=== PATIENT | female | born 1995 | race African-American/Black ===

== ENCOUNTER → 2024-10-09 11:52 | Outpatient (CLI) | payer OTHER, SELFPAY ==
--- NOTE | 2024-10-09 11:54 | DI.US.S_ITS ---
PROCEDURE: US OB <= 14 WEEKS FETUS INDICATIONS: Bleeding early OUTSIDE/PRIOR DATING DATA: Last menstrual period (LMP): 08/28/2024 LMP-based estimated date of delivery (XANDER): 06/04/2025 TECHNIQUE: Real-time scanning was performed of the fetus and maternal pelvic organs, with image documentation. COMPARISON: None. FINDINGS: Embryo: Single intrauterine sac-like structure is seen measures 6 mm in diameter. Estimated gestational age is 5 weeks, 2 days. Estimated gestational age based on last menstrual period is 6 weeks 0 day. No pole is identified. No yolk sac is seen. Heart rate: Not detected. Maternal organs: Ovaries are visualized and are within normal limits. Corpus luteum is noted in right ovary measures 1.8 x 1.2 x 1.3 cm in size. IMPRESSION: 1. Finding may represent early intrauterine gestation. Follow-up with serial beta hCG levels and follow-up ultrasound is recommended for evaluation of viability. 2. Corpus luteum in right ovary as above. We strive to produce accurate, complete, and clear reports of imaging services. To assist us in improving patient care, this report was composed using standard report templates and voice recognition software. Therefore, it may contain abnormal punctuation, insertions and/or omissions. Occasional wrong-word or sound-alike substitutions may occur. Though we review the report and make efforts to correct it, we do recommend that the report be read carefully in proper context to recognize any text inaccuracies. Dictated by: Samm Leonard M.D. on 10/09/2024 at 12:50 Approved by: Samm Leonard M.D. on 10/09/2024 at 12:52
== END ==
PROVIDERS: Referring Provider Obstetrics & Gynecology; Visit Provider Obstetrics & Gynecology
DX: O20.9 Hemorrhage in early pregnancy, unspecified (principal); D25.9 Leiomyoma of uterus, unspecified
CPT/HCPCS: 76801; 76817

== ENCOUNTER 2024-11-04 20:19 | Emergency (ER) | payer OTHER, SELFPAY ==
[2024-11-04 20:24] VITALS: BP 135/82; PULSE 79; RESP 17; TEMP 36.3; O2SAT 100; BMI 30.2
--- NOTE | 2024-11-04 22:05 | DI.US.S_ITS ---
PROCEDURE: US PELVIC COMPLETE INDICATIONS: SEVERE PAIN; POSITIVE HCG TECHNIQUE: Real-time scanning was performed of the pelvic organs, with image documentation. Additional endovaginal scanning was necessary due to incomplete visualization of the adnexal and endometrial structures by transabdominal scanning. COMPARISON: [facility], US, US OB <= 14 WEEKS FETUS, 10/09/2024, 12:04. FINDINGS: Uterus: Uterus is anteverted and normal in size at 8.6 x 4.3 x 4.8 cm. The myometrium is homogeneous. The endometrium measures 9.2 mm combined thickness. No visualized intrauterine . Right posterior intramural focus of heterogeneous echogenicity is present measuring 1.5 cm. Ovaries: The right ovary measures 2.6 x 3.6 x 2.6 cm, with a calculated ovarian volume of 12.7 cc. The left ovary measures 1.3 x 2.5 x 1.5 cm, with a calculated ovarian volume of 2.4 cc. There is is a complex focus within the right ovary measuring 1.3 x 1.7 x 1 0 cm. No increased vascularity. Other: Mild echogenic fluid is present in the cul-de-sac. IMPRESSION: No visualized intrauterine . Complex cystic structure within the right ovary. No increased vascularity. This is overall nonspecific. Could represent a corpus luteal cyst. Given presence positive beta HCG ectopic cannot be definitively excluded. Echogenic fluid within the pelvis. This is nonspecific. However, cannot exclude hemorrhagic products. We strive to produce accurate, complete, and clear reports of imaging services. To assist us in improving patient care, this report was composed using standard report templates and voice recognition software. Therefore, it may contain abnormal punctuation, insertions and/or omissions. Occasional wrong-word or sound-alike substitutions may occur. Though we review the report and make efforts to correct it, we do recommend that the report be read carefully in proper context to recognize any text inaccuracies. Dictated by: Alia Live M.D. on 11/04/2024 at 23:15 Approved by: Alia Live M.D. on 11/04/2024 at 23:17
--- NOTE | 2024-11-04 23:16 | ED.PREGNANCY ---
HPI - General Chief complaint: Vaginal Bleeding Stated complaint: vaginal bleeding, abd px Time Seen by Provider: 11/04/24 22:05 Source: patient, RN notes reviewed and old records reviewed Mode of arrival: Ambulatory History of Present Illness HPI Narrative: Female presents with complaint of vaginal bleeding was seen yesterday [facility] for abdominal pain at approximately 9.5 weeks by dates had ultrasound and was told she would miscarried as nothing was visualized her hCG was 2700 range with a cyst on the right ovary started having vaginal bleeding today and then started having clots and continued abdominal pain. Patient states that she started having pain in the last 24-48 hours describes it as being more localized to the right. Denies any fever or chills has a little nausea no vomiting. Pain has been increasing since she was seen at [facility]. She did take the oxycodone that was prescribed but states it was not helpful. She was continued to have some small initially spotting and has had larger clots when she urinates. She was wearing a diaper but has not had to change it frequently. Flank pain. No urinary symptoms. Patient states no prior pregnancies. She states she did have blood test as well as an ultrasound at the [facility] that showed an intrauterine at approximately 5 weeks. She states she was on no daily medications. No known drug allergies. No prior surgeries other than a removal of a teratoma. Related Data Home Medications Medication Instructions Recorded Confirmed vitamin-ferrous sulfate tab PO 10/03/24 10/03/24 27 mg iron-folic acid 0.8 mg tablet Previous Rx's Medication Instructions Recorded hydrocodone 5 mg-acetaminophen 325 1 tab PO Q6H PRN pain #10 tabs 11/05/24 mg tablet Allergies Allergy/AdvReac Type Severity Reaction Status Date / Time No Known Drug Allergies Allergy Verified 11/04/24 20:24 Review of Systems Review of Systems ROS Unobtainable: All systems reviewed & are unremarkable except as noted in HPI and below Exam Narrative Exam Narrative: GENERAL: Alert and oriented x three, moderate distress HEENT: Head normocephalic, atraumatic, EOMI, pupils reactive, face symmetric, moist mucous membranes NECK: Supple, full range of motion CARDIOVASCULAR: Regular rate and rhythm without murmurs, rubs or gallops. RESPIRATORY: Breath sounds equal bilaterally, no wheezes rales or rhonchi. ABDOMEN: Soft, positive for pelvic tenderness right greater than left. Normoactive bowel sounds all 4 quadrants. No guarding or rebound, rigidity, no mass : No CVA tenderness. Female: external vaginal exam is normal, positive for vaginal bleeding, patient was 1 small clot, to Ignacio swabs were used to remove dark blood patient did not have active bleeding after that, no discharge, no cervical motion tenderness, otherwise normal speculum exam, no adnexal tenderness/mass. EXTREMITIES: Normal range of motion, no clubbing or edema. Neurovascularly intact NEUROLOGICAL: Cranial nerves II through XII grossly intact. Moving all extremities SKIN: Warm, dry, no petechiae, no rashes or lesions. Initial Vital Signs Initial Vital Signs: Vital Signs Temperature 97.3 F L 11/04/24 20:24 Pulse Rate 79 11/04/24 20:24 Respiratory Rate 17 11/04/24 20:24 Blood Pressure 135/82 11/04/24 20:24 Pulse Oximetry 100 11/04/24 20:24 Oxygen Delivery Method Room Air 11/04/24 20:24 Course Orders Ordered: ED Orders 11/04/24 22:05 US pelvic complete Stat 11/04/24 23:08 ABO RH Type Stat Beta HCG, Quant [HCG Quantitative /Beta subunit] Stat CBC Auto Diff [Complete Blood Count AUTO DIFF] Stat CMP [Comprehensive Metabolic Panel] Stat Discontinued Medications Hydrocodone Bitart/Acetaminophen (Hydrocodone/Acet 5/325 Prepack) 1 bottle MISC DIRECTED ONE Stop: 11/05/24 01:25 Last Admin: 11/05/24 01:31 Dose: 1 bottle Documented By: AB Hydromorphone HCl (Hydromorphone 1 Mg Inj) 1 mg IV NOW ONE Stop: 11/04/24 23:55 Last Admin: 11/04/24 23:58 Dose: 1 mg Documented By: [facility] Ketorolac Tromethamine (Ketorolac 30 Mg/Ml Vial) 15 mg IV NOW ONE Stop: 11/04/24 23:27 Last Admin: 11/04/24 23:31 Dose: 15 mg Documented By: [facility] Vital Signs Vital signs: Vital Signs - 8 hr 11/04/24 23:17 11/04/24 23:30 11/04/24 23:30 Pulse Rate 86 85 Blood Pressure 136/94 H Pulse Oximetry 99 100 Oxygen Delivery Method 11/05/24 00:00 11/05/24 00:00 11/05/24 00:30 Pulse Rate 84 Blood Pressure 133/84 111/64 Pulse Oximetry 99 Oxygen Delivery Method 11/05/24 00:30 11/05/24 01:10 11/05/24 01:11 Pulse Rate 82 119 H Blood Pressure 121/68 Pulse Oximetry 96 92 Oxygen Delivery Method 11/05/24 01:11 Pulse Rate 106 H Blood Pressure Pulse Oximetry 98 Oxygen Delivery Method Room Air MDM - OB/Uterine Contractions Lab Data 11/04/24 23:08 11/04/24 23:08 Labs: Lab Results 11/04/24 Range/Units 23:08 WBC 14.0 H (4.5-11.0) X10^3/uL RBC 4.39 (4.0-5.2) X10^6/uL Hgb 12.8 (12.0-16.0) g/dL Hct 38.2 (36-46) % MCV 87.2 (80-100) fL MCH 29.2 (26-34) PG MCHC 33.5 (30-36) % RDW 12.8 (11.6-14.8) % Plt Count 328 (150-400) X10^3/uL Neut % (Auto) 86.9 H (50-75) % Lymph % (Auto) 8.4 L (25-40) % Hickman % (Auto) 4.5 (3-14) % Eos % (Auto) 0.0 L (2-4) % Baso % (Auto) 0.2 (0-2) % Neut # (Auto) 19264 H (7984-1024) /uL Lymph # (Auto) 1200 (0705-2201) /uL Hickman # (Auto) 600 (0-900) /uL Eos # (Auto) 0 (0-450) /uL Baso # (Auto) 0 (0-100) /uL Sodium 135 L (137-145) mmol/L Potassium 4.0 (3.4-5.1) mmol/L Chloride 103 (98-107) mmol/L Carbon Dioxide 20 L (22-32) mmol/L BUN 7 (7-17) mg/dL Creatinine 0.78 (0.52-1.04) mg/dL Estimated GFR > 60 (>60) mL/min BUN/Creatinine Ratio 9.0 (6-22) Glucose 111 H (70-100) mg/dL Calcium 9.4 (8.4-10.2) mg/dL Total Bilirubin 0.8 (0.2-1.3) mg/dL AST 33 (14-36) IU/L ALT 30 (<35) IU/L Alkaline Phosphatase 73 (38-126) U/L Total Protein 8.4 H (6.3-8.2) g/dL Albumin 4.7 (3.5-5.0) g/dL Globulin 3.7 (1.7-4.1) g/dL Albumin/Globulin Ratio 1.3 (1.0-2.8) HCG, Quant 838.47 mIU/mL Blood Type O Positive ECG Data Interpretation: MDM Narrative Medical decision making narrative: Records were obtained from [facility] patient had ultrasound which showed no visualized intrauterine cystic mass in the right adnexa possibly representing involuting corpus luteum cyst given history of recent intrauterine . Patient's hCG was 2730 on 11/03/2024 at 6:48 p.m. Hemoglobin was 12.6 last menstrual period was 08/28/2024 Labs including CBC, CMP, hCG and were repeated. Labs show white count of 14 hemoglobin 12.8 and 12.6 yesterday. Platelets of 328. Sodium is 135 electrolytes are otherwise appropriate CO2 is 20 glucose is 111 quantitative hCG on repeat is trending down words from 2730 yesterday to 838.47 today Patient was O positive. Ultrasound today shows visualized intrauterine complex cystic structure right ovary no increased vascularity nonspecific could represent a corpus luteal cyst positive beta hCG ectopic can not be definitively excluded echogenic fluid within the pelvis nonspecific cannot exclude hemorrhagic products. Right posterior intramural focus of heterogeneous echogenicity present measuring 1.5 cm. Patient received Toradol. Was still quite uncomfortable had additional narcotic pain medication. On recheck she has discomfort but is feeling much improved afterwards. Discussed with Dr. Shaver he was on-call for Ob/gynecology: Reviewed findings from today ultrasound from today well as yesterday patient appears to be having miscarriage likely has some hemorrhagic products felt appropriate for discharge home she has been hemodynamically stable with follow up in the next week and return precautions. Patient's hemoglobin appears to be stable, hCG is trending down words suspect more corpus luteum cyst and not ectopic as patient notes she had intrauterine on ultrasound at [facility] [place] [facility] [place] [employer]. On exam there is some blood but she has not had to change her pad repeatedly here in the department. She states she was changed 4 times in 12+ hours. Reviewed with patient, she has an appointment on Wednesday with char conveyor tender, Dr. Betancourt. Discussed return precautions she feels comfortable with discharge home. Discharge Plan Departure Patient Disposition: Home Clinical Impression: Miscarriage Instructions: DI for Miscarriage Activity Restrictions/Additional Instructions: Follow up in the next week with OBGYN if you are not having any improvement. Follow up with your appointment on Wednesday. Continue to use pads or diapers for vaginal bleeding. Take [place] 1-2 tablets every 6 hours as needed for pain. This medication can make you sleepy do not drive, perform hazardous activities or make any major decisions while taking it. This medication will make you constipated please take a stool softener once to twice daily until stools are soft and regular. Prescription sent to [facility] in [place]. Please return for fevers, rapidly worsening abdominal back or flank pain, persistent vomiting, lightheadedness or passing out, going through more than a pad an hour or increasing large clots, other new or concerning changes. Prescriptions: New hydrocodone-acetaminophen 5-325 mg tablet 1 tab PO Q6H PRN (Reason: pain) Qty: 10 0RF No Action vit-ferrous sulfat-FA 27 mg iron- 0.8 mg tablet PO Referrals: Provider,Neil MENDIOLA [Primary Care Provider] - Clarisa Shaver MD [Physician] - Stand Alone Forms: Patient Portal/API/Survey
[2024-11-04 23:17] VITALS: PULSE 86; O2SAT 99
[2024-11-04 23:18] LABS: Add Manual Diff / Slide Review NO; Basophils Absolute Auto 0 /uL (0-100); Basophils Percent Auto 0.2 % (0-2); Eosinophils Absolute Auto 0 /uL (0-450); Hematocrit 38.2 % (36-46); Hemoglobin 12.8 g/dL (12.0-16.0); Lymphocytes Absolute Auto 1200 /uL (1100-4500); Lymphocytes Percent Auto 8.4 % (25-40); Mean Corpuscular HGB Conc 33.5 % (30-36); Mean Corpuscular Hemoglobin 29.2 PG (26-34); Mean Corpuscular Volume 87.2 fL (80-100); Monocytes Absolute Auto 600 /uL (0-900); Monocytes Percent Auto 4.5 % (3-14); Neutrophils Absolute Auto 12200 /uL (1500-7000); Neutrophils Percent Auto 86.9 % (50-75); Platelet Count 328 X10^3/uL (150-400); Red Blood Cell Count 4.39 X10^6/uL (4.0-5.2); Red Cell Distribution Width 12.8 % (11.6-14.8)
[2024-11-04 23:30] VITALS: BP 136/94; PULSE 85; O2SAT 100
[2024-11-04] MEDS: KETOROLAC 30 MG/ML VIAL 15 MG IV (23:31)
[2024-11-04 23:34] LABS: Alanine Aminotransferase 30 IU/L (<35); Albumin 4.7 g/dL (3.5-5.0); Albumin Globulin Ratio 1.3 (1.0-2.8); Alkaline Phosphatase 73 U/L (38-126); Aspartate Aminotransferase 33 IU/L (14-36); Bilirubin Total 0.8 mg/dL (0.2-1.3); Blood Urea Nitrogen 7 mg/dL (7-17); Calcium 9.4 mg/dL (8.4-10.2); Carbon Dioxide 20 mmol/L (22-32); Chloride 103 mmol/L (98-107); Estimated Glomerular Filt Rate > 60 mL/min (>60); Globulin 3.7 g/dL (1.7-4.1); Glucose 111 mg/dL (70-100); HEMOLYSIS < 15 (0-50); Sodium 135 mmol/L (137-145); Total Protein 8.4 g/dL (6.3-8.2)
[2024-11-04 23:50] LABS: HCG Quantitative /Beta subunit 838.47 mIU/mL
[2024-11-04] MEDS: HYDROMORPHONE 1 MG INJ IV (23:58)
[2024-11-05] VITALS: BP 133/84; PULSE 84; O2SAT 99
[2024-11-05 00:30] VITALS: BP 111/64; PULSE 82; O2SAT 96
[2024-11-05 01:10] VITALS: PULSE 119; O2SAT 92
[2024-11-05 01:11] VITALS: BP 121/68; PULSE 106; O2SAT 98
[2024-11-05] MEDS: HYDROCODONE/ACET 5/325 PREPACK 1 BOTTLE MISC (01:31)
== END 2024-11-05 01:35 | disposition home or self-care (01) ==
PROVIDERS: Emergency Provider Emergency Medicine
DX: O03.9 Complete or unspecified spontaneous abortion without complication (principal)
CPT/HCPCS: 36415; 76830; 76856; 80053; 84702; 85025; 86900; 86901; 93975; 96374; 96375; 99284; J1171; J1885

== ENCOUNTER 2024-11-07 15:06 | Day surgery (SDC) | payer OTHER, SELFPAY ==
--- NOTE | 2024-11-07 | PATH_ITS ---
[facility] Accession Number: [id number] No. of containers..01 Tissue . 01 Material submitted: . product of conception - PRODUCTS OF CONCEPTION . 01 Diagnosis: PRODUCTS OF CONCEPTION AND UNSPECIFIED FALLOPIAN TUBE, UNILATERAL SALPINGECTOMY: Fimbriated fallopian tube and portion of uterine cornu with immature chorionic villi and hemorrhage, consistent with products of conception. No tissue identified. MRV 11/10/2024 1657 Local . 01 Electronically signed: . Mei Botello DO, Pathologist NPI- [id number] . 01 Gross description: . Received in formalin with two patient identifiers and products of conception, is a fimbriated fallopian tube (5.5 cm in length and ranging from 0.9-1.9 cm in diameter) with attached uterine cornua (3.5 x 1.7 x 1.7 cm). Hemorrhagic material is identified at the cornua margin. Additional fragments of hemorrhagic material aggregate to 5.5 x 5.0 x 1.6 cm. . The fallopian tube has heck, roughened, violaceous serosa and sectioning reveals the lumen is stellate with no areas of hemorrhage, dilation, or rupture identified. Sectioning the cornu reveals hemorrhagic material at the margin with no tissue identified. Inhalation Therapy Aide sections are submitted as follows: . A1-A2: Cornu. A3-A4: Fallopian tube to include one-half of bisected fimbriae and cross sections. A5: Inhalation Therapy Aide fragments of additional hemorrhagic material. ([id number]) /MRV 11/08/2024 2110 Local . 01 Pathologist provided ICD-10: O00.90 . 01 CPT . 283054 Specimen Comment: A courtesy copy of this report has been sent to [facility] Pathology Performed at: [address] [address], [place], [place] [id number] MD Jono Elam MD Phone: [phone]
[2024-11-07 15:26] VITALS: BP 113/76; PULSE 77; RESP 16; TEMP 36.8; O2SAT 100; BMI 29.3
--- NOTE | 2024-11-07 15:45 | P.HPOB_ITS ---
History of Present Illness History of Present Illness Narrative: Bijal Alves is a 29 year old female G1 with of unknown location who presented to office today for further evaluation of same. On evaluation in office patient was found to have acute surgical abdomen, +rebound, +CMT, TVUS without evidence of IUP and layering fluid within CDS concerning for hemorrhagic fluid. Patient counseled on and in agreement with recommendation to proceed urgently to OR for diagnostic laparoscopy, removal of ectopic if found, possible salpingectomy in religious of damage with concern for risk of future ectopic, dilation and curettage. patient met in preoperative area, affirms desire to proceed as scheduled. [facility] Medical History (Updated 11/07/24 @ 15:54 by Hina Betancourt MD) of unknown anatomic location Ovarian mass (~2013) Surgical History (Updated 10/03/24 @ 08:06 by Rebeca Ramírez RN) History of pelvic surgery (~2013) [place] teeth removed (05/15/22) Family History (Updated 10/03/24 @ 08:10 by Rebeca Ramírez RN) Mother Age: 51 Osteoarthritis Alcoholism Grandfather Hypertension Father Family estrangement Social History marital status: unmarried,living together number of children: 0 household members: significant other lives independently: Yes caregiver/support person: No housing: condominium pets and animals: Yes (cats) education level: college (bachelor's degree) 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, 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) special nelda needs: No travel history: recent ([place]) seatbelt use: always water heater temp set < 120 deg: Yes working smoke detector in home: Yes fire extinguisher in home: Yes carbon monox detector in home: Yes firearms in home: No do you feel safe at home: Yes Smoking Status: Former smoker Tobacco: How many years used: 1 second hand exposure: No alcohol intake: former (quit drinking when she started trying for ) substance use type: does not use during the past year weight has: remained stable well-balanced diet: daily or most days daily servings fruits/ve or more times/day caffeine: No Type(s) of exercise: walking and other (physical job) additional social history: On discussion of [facility], pt states that she would not want her mother (her legal NOK) as an alternate decision maker. Encouraged her to complete a HCPOA form as soon as possible, this should be on file w/ her will and other similar records in her legal paperwork for the [place], should also be in her medical file, we would like a copy for our own files, and should keep the original available at home wherever she stores her important paperwork. Meds Home Medications and Allergies Home Medications Medication Instructions Recorded Confirmed Type vitamin-ferrous sulfate tab PO 10/03/24 11/07/24 History 27 mg iron-folic acid 0.8 mg tablet hydrocodone 5 mg-acetaminophen 325 1 tab PO Q6H PRN pain #10 tabs 11/05/24 11/07/24 Rx mg tablet Allergies Allergy/AdvReac Type Severity Reaction Status Date / Time No Known Drug Allergies Allergy Verified 11/07/24 14:55 Review of Systems Review of Systems ROS: Yes All systems reviewed with the patient and are negative except as otherwise documented Exam Const General: cooperative, No acute distress and other (uncomfortable appearing ) Nutritional Appearance: average body habitus Orientation: alert, awake and oriented x3 Limitations: mental status not altered Resp Effort & Inspection: normal respiratory effort and able to speak in complete sentences Other: deferred, see clinic documentation Skin General: no rashes or lesions noted Neuro General: patient alert, patient awake and patient oriented x3 Extrem General: normal to inspection Psych Mental Status: mental status grossly normal Judgment: judgment good Assessment & Plan Assessment and plan (1) of unknown anatomic location: Status: Acute Plan 29yo G1 with suspected ectopic/PUL presents to outpatient surgery center for urgent unscheduled procedure PUL, acute surgical abdomen Pt is consented for diagnostic laparoscopy, removal of ectopic if found, possible salpingectomy pending intraoperative findings, dilation and curettage risks, benefits and alternatives to procedure reviewed, pt verbalized understanding and desires to proceed dispo: to OR Time-Based Coding :: [TOTAL MINUTES] spent with patient and on the chart (including review of chart, obtaining history, exam, reviewing outside data, placing orders, documenting exam and treatment plan, and counseling patient) on [DATE].
--- NOTE | 2024-11-07 15:45 | PM.PREOP ---
Pre-operative Note Interval Note History & Physical reviewed/Exam performed by Physician: Yes Changes to H&P: No ASA Class (for procedural sedation): II
--- NOTE | 2024-11-07 16:39 | SUR.OPER ---
Lithotomy on padded OR bed. Orangetree Pad Positioner under torso. Head on pillow, arms padded and tucked at sides. Legs secured in padded yellow fins stirrups.
[2024-11-07] MEDS: BUPIVACAINE 0.25% W/ EPI 30 ML VIAL INJ (16:57)
[2024-11-07] MEDS: ACETAMINOPHEN IV 1,000 MG/100 ML VIAL 400 MG IV (17:33)
--- NOTE | 2024-11-07 17:41 | P.OP_ITS ---
Operative Date/Time/Diagnoses Date of procedure: 11/07/24 Time of procedure: 17:42 Pre-op diagnosis: of unknown location, acute surgical abdomen Post-op diagnosis: same Procedure & Clinicians Procedure: diagnostic laparoscopy R salpingectomy wedge resection of R cornual ectopic Same procedure as scheduled: Yes Indications: of unknown anatomic location, suspected ruptured ectopic Surgeon: Hina Betancourt [employer] Compliance Manager: Elyssa Banda Anesthesia Type: General Operative Notes Findings: Approximately 200cc hemoperitoneum noted on abdominal entry grossly dilated R cornua, hemorrhagic products of conception beginning to rupture through posterior aspect dilated and clubbed R fallopian tube, normal appearing R ovary L ovary surgically absent c/w prior procedure L fallopian tube significantly adhesed to posterior CDS, unable to adequately visualize fimbrae Closure Type: primary Specimen(s): other (products of conception) Estimated Blood Loss (mL): 100 Procedure in detail: The patient was taken to the operating room, placed on the operating table in the supine position and intubated with ETT.? The patient was then placed in the lithotomy position with her legs in [place] stirrups with arms tucked.? The patient was then examined under anesthesia with the above findings, then prepped and draped in a sterile fashion.? A hung catheter was placed.? Time out was performed. A loaded sterile sponge stick was placed in the vagina for atraumatic uterine manipulation. A 5mm incision was made infraumbilically and abdominal entry was achieved under direct visualization using the 5mm VisaPort trocar.? Abdomen was insufflated to 15mmHg.? Two lateral 5-mm ports were placed in a similar manner under direct visualization.? The uterus was anteverted and abdominal survey was noted with findings as noted above. The Powerseal was used to dissect the R fallopian tube away from the mesosalpinx.? As dissection advanced to the level of the ballooned/dilated cornua the products of conception began to spontaneously expulse through the identified myometrial defect. The R fallopian tube was amputated at the level of the cornual remnant. The infraumbilical port was removed; skin incision extended to 1cm and 11mm trocar placed. The small EndoCatch bag was placed via the 11mm port and the products of conception as well as R fallopian tube were placed into the bag under direct visualization. The 11mm port was removed and the endocatch bag was brought to the level of the incision and withdrawn from the abdomen intact and passed off the field for permanent study. The 11mm trocar was then replaced. First an Endo TATO laparoscopic stapler was introduced via the larger port with planned reanastamosis of the myometrial wedge defect, however when arms of device were articulated they were deemed to be too large for safe use and in strument was removed. An additional 5mm R lateral port was placed for assistance with intracoporeal laparoscopic suture. A 2-0 stratafix suture was introduced via the 11mm port under direct visualization. The R cornual defect was copiously suction irrigated and noted to be hemostatic. Using intracoporeal suture technique the R cornual defect was oversewn in a running fashion with noted hemostasis thereafter. Interceed was then placed over the suture line for adhesion prophylaxis. Decision made not to proceed with dilation and curettage as originally planned due to risk of iatrogenic injury of the R cornua. The abdomen was copiously suction irrigated and all clot and fluid was removed. All wound beds were inspected and noted to be hemostatic. The pneumoperitoneum was vented and trocars were removed under direct visualization. The fascia of the infraumbilical incision was closed using 0-0 vicryl on a UR6 needle. The skin of all incisions was closed using 4-0 monocryl in a subcuticular fashion followed by application of dermabond. The sponge stick was removed from the vagina and the hung was discontinued. All counts correct x2. Patient was awoken from anesthesia, extubated and transferred to PACU in stable condition without complication. Complications: none Post-operative Condition: stable Disposition: PACU Plan for aftercare: anticipate dc to home from PACU pending clinical recovery from anesthesia
[2024-11-07 17:48] VITALS: BP 101/58; PULSE 92; RESP 20; TEMP 36.4; O2SAT 94
[2024-11-07 17:54] VITALS: BP 112/73; PULSE 85; RESP 15; TEMP 36.4; O2SAT 94
[2024-11-07 17:59] VITALS: BP 113/81; PULSE 90; RESP 12; TEMP 36.4; O2SAT 94
[2024-11-07] MEDS: ONDANSETRON 4 MG/2 ML INJ IV (18:05)
[2024-11-07] MEDS: hydrOXYzine 50 MG/ML INJ IM (18:11)
[2024-11-07 18:15] VITALS: BP 124/91; PULSE 81; RESP 12; TEMP 36.4; O2SAT 95
[2024-11-07] MEDS: OXYCODONE IR 5 MG TABLET PO (18:15)
[2024-11-07 18:28] VITALS: BP 118/86; PULSE 84; RESP 15; TEMP 36.4; O2SAT 98
== END 2024-11-07 18:42 | disposition home or self-care (01) ==
LOC: AC 18:22 → OR 11-08 07:15
PROVIDERS: Referring Provider Obstetrics & Gynecology; Visit Provider Obstetrics & Gynecology
PROC: (CPT 49320; principal; 2024-11-07 15:00)
DX: O00.80 Other ectopic pregnancy without intrauterine pregnancy (principal)
CPT/HCPCS: 59151; J0131; J1100; J1171; J1885; J2250; J2405; J2704; J2765; J3010; J3410

== ENCOUNTER → 2025-02-21 14:19 | Outpatient (CLI) | payer OTHER, SELFPAY ==
[2025-02-21 20:46] LABS: Urine N gonorrhoeae NOT DETECTED
[2025-02-21 20:55] LABS: Urine Chlamydia NOT DETECTED
== END ==
PROVIDERS: Visit Provider Obstetrics & Gynecology
DX: Z01.818 Encounter for other preprocedural examination (principal)
CPT/HCPCS: 87491; 87591

== ENCOUNTER → 2025-03-07 09:49 | Outpatient (CLI) | payer OTHER, SELFPAY ==
--- NOTE | 2025-03-07 09:50 | DI.RAD.S_ITS ---
PROCEDURE: HL HYSTEROSAPINGOGRAPHY INDICATIONS: intraoperative findings concerning for occluded L salpinx COMPARISON: [facility], , US PELVIC COMPLETE, 11/04/2024, 22:32. FINDINGS: Patient had a documented negative test prior to the study. Following speculum insertion, a catheter was inserted into the cervical canal, and secured. Contrast was then injected into the endometrial canal. Uterus: The uterine cavity appears normal in size and morphology, without synechiae or masses. Fallopian tubes: Left fallopian tube fill with contrast. Question mild irregularity at the distal aspect. The right fallopian tube is absent. There is ready dispersion of contrast into the peritoneal cavity. IMPRESSION: Contrast flows through the left fallopian tube. Right fallopian tube is absent. Dictated by: Michael Mcgraw M.D. on 03/07/2025 at 12:23 Approved by: Michael Mcgraw M.D. on 03/07/2025 at 12:25
--- NOTE | 2025-03-07 12:38 | PM.PROC.IH ---
Procedures Date/Time Date of procedure: 03/07/25 Time of procedure: 10:00 General Procedure description: hysterosalpingogram Complications: none [facility] [employer] Document charge(s): Yes Informed consent given: Yes Consent signed: Yes Procedure Notes: Hysterosalpingogram: Patient met in IR room, informed consent reviewed and completed. Patient in supine dorsal lithotomy position. Sterile speculum placed and cervix easily visualized. Cervix swabbed serially with betadine x3. Anterior cervix grasped with single tooth tenaculum and HSG catheter placed via external os, balloon inflated with 5cc. 20u isovue instilled via catheter under direct fluoroscopy with visualization of torturous L fallopian tube with spill into the abdominal cavity consistent with patency. Catheter removed. Results of exam reviewed with patient. No complications
== END ==
LOC: RAD 09:50
PROVIDERS: Visit Provider Radiology Diagnostic Radiology
DX: N97.1 Female infertility of tubal origin (principal); Z87.59 Personal history of other complications of pregnancy, childbirth and the puerperium; Z90.79 Acquired absence of other genital organ(s)
CPT/HCPCS: 58340; 74740; Q9967